=== PATIENT | female | born 1950 | race Caucasian/White ===

== ENCOUNTER 2023-06-25 14:01 | Emergency (ER) | payer MEDICARE, OTHER, SELFPAY ==
[2023-06-25 14:11] VITALS: BP 144/93
[2023-06-25 15:31] LABS: % Basophils 0.7 % (0-2); % Eosinophils 0.7 % (0-6); % Immature Granulocytes 0.5 % (0-0.5); % Lymphocytes 11.7 % (20.5-51.1); % Monocytes 4.6 % (1.7-9.3); % Neutrophils 81.8 % (42.2-75.2); Absolute Basophils 0.1 10^3/uL (0-0.2); Absolute Eosinophils 0.1 10^3/uL (0-0.7); Absolute Monocytes 0.4 10^3/uL (0.1-0.6); Absolute Neutrophils 7.1 10^3/uL (1.4-6.5); Hematocrit 42.5 % (37.0-47.0); Hemoglobin 15.5 g/dL (12.0-16.0); Mean Corp Hgb Conc. 36.5 g/dL (33.0-37.0); Mean Corpuscular Hgb 32.6 pg (27.0-31.0); Mean Corpuscular Volume 89.3 fL (81.0-99.0); Mean Platelet Volume 8.8 fL (7.4-10.4); Nucleated Red Blood Cells % 0 %; Platelet Count 255 10^3/uL (130-400); Red Blood Cell Count 4.76 10^6/uL (4.20-5.40); Red Cell Dist. Width 13.4 % (11.5-14.5); White Blood Cell Count 8.7 10^3/uL (4.8-10.8)
[2023-06-25 15:49] LABS: ALT (SGPT) 41 U/L (0-35); AST (SGOT) 40 U/L (14-36); Albumin 4.4 g/dl (3.5-5.0); Alkaline Phosphatase 77 U/L (38-126); Blood Urea Nitrogen 10 mg/dl (7-17); Calcium 9.7 mg/dl (8.4-10.2); Carbon Dioxide 27 mmol/L (22-30); Chloride 89 mmol/L (98-107); Glucose 124 mg/dl (70-99); Potassium 3.7 mmol/L (3.5-5.1); Sodium 128 mmol/L (135-145); Total Bilirubin 1.4 mg/dl (0.2-1.3); eGFR > 60.00
--- NOTE | 2023-06-25 16:27 | ED.GENMED ---
History of Present Illness
General
Chief Complaint: Dizziness
Source: patient
Time Seen by Provider: 06/25/23 15:51
Travel History
Have you had any contact with someone who has COVID-19?: No
Do you have any symptoms of coronavirus? Fever > 100 degrees, chills, cough, shortness of breath, sore throat, loss of taste or smell, muscle aches, or headache?: No
History of Present Illness
History of Present Illness:
73-year-old female presents to the emergency room complaining of feeling nauseous, dizzy starting around noon. Patient experience these symptoms for an hour or so. She feels better now. She did not have chest pain per se at the time. Patient has
been undergoing treatment for a 'lung infection' since April. Patient measured her blood pressure at the time of the symptoms and it was in the 120s initially went up to the 150s. She became nervous with this extent of hypertension.
Phy Exam
Physical Exam
Physical Exam:
General: Awake, Alert, Oriented X3. No acute distress.
Vitals: unremarkable
Head: Atraumatic
Eyes: Pupils equal, EOMI
Throat: Airway intact, no exudates
Neck: Trachea midline
Lungs: Few expiratory wheezes
Heart: Regular rate, no murmurs
Abd: Soft, Nontender, No pulsatile mass
Neuro: Nonfocal
Skin: Warm, dry, no rash
Extremities: pulses equal b/l, no edema
Course
Orders/Labs/Results
Orders:
Orders
06/25/23 15:10
EKG [Electrocardiogram (*1)] Urgent
Reason for Study: Vertigo / Dizzy
EKG- Treatment ONCE
06/25/23 15:21
CBC/With Diff [Complete Blood Count/With Diff] Urgent
CMP [Comprehensive Metabolic Panel] Urgent
06/25/23 16:31
CR Chest - 2 Views Urgent
Comment:
Reason For Exam: cough, sob
06/25/23 16:47
Troponin I Urgent
Abnormal Lab Results
06/25/23
15:21
MCH 32.6 H pg
(27.0-31.0)
Absolute Neuts (auto) 7.1 H 10^3/uL
(1.4-6.5)
Absolute Lymphs (auto) 1.0 L 10^3/uL
(1.2-3.4)
Neutrophils % 81.8 H %
(42.2-75.2)
Lymphocytes % 11.7 L %
(20.5-51.1)
Sodium 128 L mmol/L
(135-145)
Chloride 89 L mmol/L
(98-107)
Glucose 124 H mg/dl
(70-99)
Total Bilirubin 1.4 H mg/dl
(0.2-1.3)
AST 40 H U/L
(14-36)
ALT 41 H U/L
(0-35)
06/25/23 15:21
06/25/23 15:21
Vital Signs
Initial and Last Documented VS:
Initial Vital Signs
Temp Pulse Resp BP Pulse Ox
98.3 F 69 18 144/93 98
06/25/23 14:11 06/25/23 14:11 06/25/23 14:11 06/25/23 14:11 06/25/23 14:11
Last Documented Vital Signs
Temp Pulse Resp BP Pulse Ox
98.3 F 69 18 144/93 98
06/25/23 14:11 06/25/23 14:11 06/25/23 14:11 06/25/23 14:11 06/25/23 14:11
MDM/Problems Addressed
Differential Diagnosis Includes:
Vasovagal event, dysrhythmia, dehydration
MDM/Problems Addressed:
Patient presents with what sounds like I near syncopal event. No dysrhythmia noted here. Labs are reassuring. Troponin is normal and it was obtained 3 hours after the onset of symptoms. Blood pressure is essentially normal here. Unclear exactly
what the cause of the patient's symptoms were there is no evidence of any unstable process ongoing. Patient stable for discharge home and outpatient follow-up
Chronic conditions affecting care: HTN
*Radiology
Radiology exam reviewed: radiology read reviewed
*Pulse Oximetry
Patient hypoxic: no
*EKG
Interpreted by ED Provider?: Yes
Interpretation: normal
Heart Rate: 70
Rate: normal
Rhythm: sinus
[place]: normal axis
Interval: normal interval
QRS Pattern: normal QRS
Ischemia: no ischemia
*Digester Cook Interpretation
Rate: normal
Interpretation: normal
Heart Rate: 70
Rhythm: sinus
*Critical Care Note
Total Time (30-74mins, 75-104mins- exclusive of procedures): Not Applicable
Patient Management
Social determinants of health affecting care: Strong social support
ED Attending Note
-
Portions of this chart may have been created with voice recognition software.� Occasional wrong word or��sound alike� substitutions may have occurred due to the inherent limitations of voice recognition software.
Discharge Plan
Departure
Patient Disposition: Home (Routine Discharge)
Date of Disposition: 06/25/23
Time of Disposition: 17:29
Patient with high blood pressure during this ER visit?: Yes
Condition: Good
Discharge Problem:
Near syncope
Instructions: Near Fainting (DC)
Referrals:
René Ramon MD [Family Provider] -
Activity Restrictions/Additional Instructions:
Your blood work here shows a mildly low sodium level and very mildly elevated LFT's. I do not believe that it is related to your symptoms. You should follow up with your family doctor to have them re-tested in a couple weeks.
Interventions
Interventions:
ED- Fall Risk Assessment Last Done: 06/25/23 15:58
*Nursing Disposition Last Done: 06/25/23 17:40
ED- Neurological Assessment Last Done: 06/25/23 15:58
ED- Cardiac Assessment Last Done: 06/25/23 15:58
ED Swallowing Screen Last Done: 06/25/23 15:58
Discharge Date and Time
Discharge Date/Time: 06/25/23 17:41
[2023-06-25 17:27] LABS: Troponin I < 0.012 ng/ml
== END 2023-06-25 17:41 | disposition home or self-care (01) ==
LOC: EMR 14:01
PROVIDERS: EMERGENCY PHYSICIAN Emergency Medicine; FAMILY PHYSICIAN Internal Medicine
DX: R55 Syncope and collapse (principal); R42 Dizziness and giddiness; I10 Essential (primary) hypertension
CPT/HCPCS: 99285; 71046; 80053; 84484; 85025; 93005

== ENCOUNTER 2023-09-24 11:18 | Emergency (ER) | payer MEDICARE, OTHER, SELFPAY ==
[2023-09-24 11:21] VITALS: BP 140/85
[2023-09-24 11:42] VITALS: BMI 27.2
--- NOTE | 2023-09-24 12:14 | ED.MUSCINJ ---
HPI-Injury
General
Chief Complaint: Fall
Source: patient
Exam Limitations: none
Time Seen by Provider: 09/24/23 11:53
Travel History
Have you had any contact with someone who has COVID-19?: No
Do you have any symptoms of coronavirus? Fever > 100 degrees, chills, cough, shortness of breath, sore throat, loss of taste or smell, muscle aches, or headache?: No
History of Present Illness-Injury
Initial Injury comments:
73-year-old female presents with mechanical fall. Her flip-flop folded over and she fell forward landing on her right knee. She bumped her head on a vehicle that was parked. She scraped her left elbow. Her main complaint is the right knee. She
denies loss of conscious. Denies significant headache or vision change. She denies neck pain. No other complaints at this time
Phy Exam
Physical Exam
Physical Exam:
General: Well-appearing female no acute respiratory distress
HEENT: Normocephalic no scalp abrasion hematoma pupils equal round reactive to light
Musculoskeletal exam: The spine is nontender. The right knee is tender anteriorly for the overlying abrasion. The abrasion is superficial. There is an intra-articular effusion. She is able to straight leg raise against gravity. Posterior joint
and anterior tibia nontender left elbow with full range of motion
Skin: Superficial abrasions over the left elbow and anterior right knee
Neurologic: Alert and oriented good strength in no facial asymmetry or slurred speech
Injury Course
Orders/Labs/Results
Orders:
Orders
09/24/23 11:24
Knee, Right 4 or More Views [CR Knee- Right 4 Or More View*] Urgent
Comment:
Reason For Exam: pain
09/24/23 12:06
Knee Immobilizer Right-Treatme ONCE
MDM/Problems Addressed
Differential Diagnosis Includes:
Mechanical fall main complaint is right knee pain. Question contusion versus fracture versus dislocation. X-rays were ordered which I personally reviewed and demonstrate nondisplaced fracture over the articular surface of the patella. Patient is
able to straight leg raise. She is functional. Will apply a knee immobilizer. The wounds irrigated with saline and dressed with antibacterial ointment and a gauze wrap. Recommend follow-up with orthopedics
*Critical Care Note
Total Time (30-74mins, 75-104mins- exclusive of procedures): Not Applicable
ED Attending Note
-
Portions of this chart may have been created with voice recognition software.� Occasional wrong word or��sound alike� substitutions may have occurred due to the inherent limitations of voice recognition software.
Discharge Plan
Departure
Patient Disposition: Home (Routine Discharge)
Date of Disposition: 09/24/23
Time of Disposition: 12:18
Patient with high blood pressure during this ER visit?: No
Discharge Problem:
Patellar fracture
Referrals:
René Ramon MD [Family Provider] -
Herbert Meyers MD [Active] -
Activity Restrictions/Additional Instructions:
Use knee immobilizer at all times. Use ibuprofen or Tylenol for pain. Follow-up with orthopedics for further evaluation
Interventions
Interventions:
*Risk Screen - Suicide Last Done: 09/24/23 11:49
*General Assessment Last Done: 09/24/23 11:44
*Neglect/Abuse Screening Last Done: 09/24/23 11:49
ED- Fall Risk Assessment Last Done: 09/24/23 11:44
*ED COVID-19 Vaccine History Last Done: 09/24/23 11:21
ED-Musculoskeletal Assessment Last Done: 09/24/23 11:45
ED- Neurological Assessment Last Done: 09/24/23 11:45
ED-Skin Assessment Last Done: 09/24/23 11:45
Discharge Date and Time
Print Language: PORTUGUESE
== END 2023-09-24 12:43 | disposition home or self-care (01) ==
LOC: EMR 11:18
PROVIDERS: EMERGENCY PHYSICIAN Emergency Medicine; FAMILY PHYSICIAN Internal Medicine
DX: S82.001A Unspecified fracture of right patella, initial encounter for closed fracture (principal); W19.XXXA Unspecified fall, initial encounter
CPT/HCPCS: 99283; 29505; 73564

== ENCOUNTER 2023-12-14 14:49 | Outpatient (RCR) | payer MEDICARE, OTHER, SELFPAY | END 2023-12-14 23:59 | disposition home or self-care (01) | LOC: RPT 14:49 | PROVIDERS: ATTENDING PHYSICIAN Physician Assistant Medical; FAMILY PHYSICIAN Family Medicine | DX: S82.091D Other fracture of right patella, subsequent encounter for closed fracture with routine healing (principal) | CPT/HCPCS: 97110; 97162; 97530 ==

== ENCOUNTER 2024-01-14 09:00 | Outpatient (RCR) | payer MEDICARE, OTHER, SELFPAY | END 2024-01-14 10:25 | disposition home or self-care (01) | LOC: RPT 09:00 | PROVIDERS: ATTENDING PHYSICIAN Physician Assistant Medical; FAMILY PHYSICIAN Family Medicine | DX: S82.091D Other fracture of right patella, subsequent encounter for closed fracture with routine healing (principal); Z73.6 Limitation of activities due to disability | CPT/HCPCS: 97110; 97112; 97530 ==